=== PATIENT | female | born 1960 | race Caucasian/White ===

== ENCOUNTER → 2019-05-27 | Outpatient (CLI) | payer OTHER ==
[~2019-05-27] MED LIST: HYDROCODONE-AP1 EAC6 PO; XARELTO10 MG PO
== END ==
LOC: MRI 09:29
DX: M50.121 Cervical disc disorder at C4-C5 level with radiculopathy (principal); M50.33 Other cervical disc degeneration, cervicothoracic region; M48.02 Spinal stenosis, cervical region; M12.88 Other specific arthropathies, not elsewhere classified, other specified site